=== PATIENT | male | born 1935 | race Two or more races ===

== ENCOUNTER 2022-06-09 16:04 | Inpatient (IN) | payer MEDICARE, OTHER ==
[~2022-06-09] VITALS: Ht 172.7 cm; Wt 58.7 kg
[2022-06-09 16:43] LABS: BASOPHILS % (AUTO) 0.4 % (0.0-2.0); EOSINOPHILS % (AUTO) 0.1 % (0.0-6.0); HEMATOCRIT 42 % (39-51); HEMOGLOBIN 12.6 g/dL (13.5-17.5); LYMPHOCYTES # (AUTO) 1.5 K/uL (0.8-4.8); LYMPHOCYTES % (AUTO) 12.9 % (20.0-44.0); MEAN CORPUSCULAR HGB CONC 30 g/dl (31.0-36.0); MEAN CORPUSCULAR VOLUME 91 fL (80-96); MONOCYTES # (AUTO) 1.3 K/uL (0.1-1.30); MONOCYTES % (AUTO) 11.1 % (2.0-12.0); NEUTROPHILS % (AUTO) 75.5 % (43.0-81.0); PLATELET COUNT (AUTO) 165 K/uL (150-450); RED BLOOD CELL COUNT(AUTO) 4.62 MIL/uL (4.5-6.0); WHITE BLOOD COUNT (AUTO) 11.9 K/uL (4.3-11.0)
--- NOTE | 2022-06-09 16:43 | NUR ---
iv line established on lac #20 and rfa #20, blood drawn and sent to lab
--- NOTE | 2022-06-09 16:45 | NUR ---
manager radio at bedside for xray
--- NOTE | 2022-06-09 16:51 | NUR ---
covid specimen and urine sample collected and sent to lab
[2022-06-09] MEDS ORDERED: NA P133E RC (16:57)
[2022-06-09] MEDS ORDERED: MAGN400O6 PO (16:57)
[2022-06-09] MEDS ORDERED: RANO500T3 PO (16:57)
[2022-06-09] MEDS ORDERED: APIX5TAB PO (16:57)
[2022-06-09] MEDS ORDERED: DONE10TA11 PO (16:57)
[2022-06-09] MEDS ORDERED: CLOP75TA15 PO (16:57)
[2022-06-09] MEDS ORDERED: QUET25TA PO ×2 (16:57)
[2022-06-09] MEDS ORDERED: MEMA10TA PO (16:57)
[2022-06-09] MEDS ORDERED: DOCU-141 PO (16:57)
[2022-06-09] MEDS ORDERED: MELA3TAB41 PO (16:57)
[2022-06-09] MEDS ORDERED: LANS15CA13 PO (16:57)
[2022-06-09] MEDS ORDERED: ICOS1CAP PO (16:57)
[2022-06-09 16:58] LABS: CALCIUM, SERUM 8.3 mg/dL (8.5-10.1); CARBON DIOXIDE 30 mmol/L (21-32); CHLORIDE 109 mmol/L (98-107); CREATININE 1.3 mg/dL (0.6-1.3); GLUCOSE 133 mg/dL (74-106); POTASSIUM 4.5 mmol/L (3.5-5.1); SODIUM SERUM 145 mmol/L (136-145); UREA NITROGEN, BLOOD 33 mg/dL (7-18)
[2022-06-09 17:46] LABS: BILIRUBIN,URINE MODERATE (NEGATIVE); COLOR,URINE DARK YELLOW (YELLOW); LEUKOCYTE ESTERASE ,URINE NEGATIVE (NEGATIVE); NITRITE, URINE NEGATIVE (NEGATIVE); PROTEIN,URINE TRACE mg/dl (NEGATIVE); UGLUCOSE NEGATIVE (NEGATIVE); UROBILINOGEN,URINE >=8.0 EU/dL (0.2)
[2022-06-09] MEDS ORDERED: FUROSEMIDE 20 MG/2 ML VIAL IV ONE (18:00)
[2022-06-09] MEDS ORDERED: FUROSEMIDE 20 MG/2 ML VIAL ONE (18:02)
--- NOTE | 2022-06-09 18:05 | NUR ---
sergio piano case and bench assembler for [facility]. contact # [phone]
[2022-06-09] MEDS ORDERED: NITROGLYCERIN 0.4 MG/TAB BOTTLE SL PRN (20:00)
--- NOTE | 2022-06-09 22:17 | NUR ---
Dustin victor in [facility] - 06/10/22 at 0533 by MIK BED [id number]
[2022-06-09] MEDS ORDERED: CEFTRIAXONE 1 G in IV D5W 50 ML IV SCH (23:00)
[2022-06-09] MEDS ORDERED: CEFTRIAXONE 1GM BAG (ER ONLY) 50 ML IV ONE (23:53)
[2022-06-10] MEDS ORDERED: FUROSEMIDE 20 MG/2 ML VIAL IV ONE (00:30)
[2022-06-10] MEDS ORDERED: MAGNESIUM HYDROXIDE 30 ML UDC PO PRN (00:30)
[2022-06-10] MEDS ORDERED: methylPREDNISolone SOD SUCC 40 MG/ML VIAL IV ONE (00:30)
[2022-06-10] MEDS ORDERED: FUROSEMIDE 20 MG/2 ML VIAL ONE (01:04)
[2022-06-10] MEDS ORDERED: methylPREDNISolone SOD SUCC 40 MG/ML VIAL ONE (01:04)
--- NOTE | 2022-06-10 03:00 | NUR ---
PT PROVIDED WITH WARM BLANKET FOR COMFORT.
--- NOTE | 2022-06-10 05:26 | NUR ---
TROPONIN 83. WILL INFORM MD
--- NOTE | 2022-06-10 06:40 | NUR ---
PT IS RESTING COMFORTABLY IN BED W/ EYES OPEN. RR EVEN AND NONLABORED ON NASAL CANNULA 3L OF O2. NO SIGNS OF DISTRESS. ON CONTINUED POX AND HEART MONITOR.
--- NOTE | 2022-06-10 07:21 | NUR ---
REPORT GIVEN TO PHEOBE FOR [facility]
--- NOTE | 2022-06-10 07:47 | NUR ---
BED [id number]
--- NOTE | 2022-06-10 07:56 | NUR ---
PT REPORT GIVEN TO ZAKIYA MORALES
[2022-06-10] MEDS ORDERED: PANTOPRAZOLE 40 MG TABLET.DR PO ONE (08:00)
[2022-06-10] MEDS: PANTOPRAZOLE 40 MG TABLET.DR PO SCH (08:00)
[2022-06-10 08:18] LABS: ALBUMIN 2.1 g/dL (3.4-5.0); BILIRUBIN,TOTAL 6.7 mg/dL (0.2-1.0); CALCIUM, SERUM 8.1 mg/dL (8.5-10.1); CREATININE 1.3 mg/dL (0.6-1.3); TOTAL PROTEIN, SERUM 7.9 g/dL (6.4-8.2)
[2022-06-10] MEDS ORDERED: FUROSEMIDE 20 MG/2 ML VIAL IV SCH (08:30)
--- NOTE | 2022-06-10 08:45 | NUR ---
PT TRANSFERRED TO 313-1 VIA [facility] ACLS PROTOCOL. WARM HANDOFF GIVEN TO ZAKIYA MORALES.
[2022-06-10] MEDS ORDERED: ASPIRIN EC 81 MG TABLET.DR PO SCH (09:00)
[2022-06-10] MEDS ORDERED: Medication Not On Formulary EA (Icosapent Ethyl (Vascepa) 2 CAP) PO SCH (09:00)
[2022-06-10] MEDS ORDERED: FUROSEMIDE 40 MG/4 ML VIAL IV SCH (09:00)
--- NOTE | 2022-06-10 09:00 | NUR ---
RN NOTE PATIENT WAS TRANSFERRED FROM ER VIA GURNEY WITH NO SIGNS OF DISTRESS NOTED. REPORT RECEIVED FROM ER NURSE. PATIENT V/S TAKEN STABLE AND RECORDED. PATIENT WAS ORIENTED TO ROOM SETUP AND EDUCATED ON THE USE OF CALL LIGHT. PATIENT AWAKE IN BED RESTING. A/O X1, NO PAIN NOTED AT THIS TIME. ON 4L OXYGEN VIA NC, NO DISTRESS OR SHORTNESS OF BREATH NOTED. IV ACCESS LAC #20G, RFA #20G INTACT, PATENT AND FLUSHING WELL. PATIENT ON EXTERNAL MIXER CRANE OPERATOR WITH CURRENT READING OF A-FLUTTER VENTRICULAR PACING AND HR OF 80, NO CARDIAC DISTRESS NOTED. FALL AND SAFETY MEASURES IN PLACE, BED ALARM ON, BED IN LOW AND LOCK POSITION, CALL LIGHT AND TABLE WITHIN EASY REACH, SIDE RAILS UP X2. WILL CONTINUE TO MONITOR.
[2022-06-10] MEDS: MEMANTINE HCL 5 MG TABLET PO SCH ×2 (09:57→21:46)
[2022-06-10] MEDS: CLOPIDOGREL BISULFATE 75 MG TABLET PO SCH (09:57)
[2022-06-10] MEDS: RANOLAZINE 500 MG TAB.ER.12H PO SCH ×2 (09:57→21:45)
[2022-06-10] MEDS: APIXABAN 5 MG TABLET PO SCH ×2 (09:58→16:37)
[2022-06-10 11:15] LABS: HEMATOCRIT 42 % (39-51); LYMPHOCYTES # (AUTO) 0.8 K/uL (0.8-4.8); LYMPHOCYTES % (AUTO) 10.1 % (20.0-44.0); MEAN CORPUSCULAR HGB CONC 31 g/dl (31.0-36.0); MEAN CORPUSCULAR VOLUME 91 fL (80-96); MONOCYTES # (AUTO) 0.4 K/uL (0.1-1.30); MONOCYTES % (AUTO) 4.5 % (2.0-12.0); NEUTROPHILS # (AUTO) 6.9 K/uL (1.8-8.9); NEUTROPHILS % (AUTO) 85.4 % (43.0-81.0); PLATELET COUNT (AUTO) 160 K/uL (150-450); RED BLOOD CELL COUNT(AUTO) 4.65 MIL/uL (4.5-6.0); WHITE BLOOD COUNT (AUTO) 8.1 K/uL (4.3-11.0)
[2022-06-10] MEDS: QUETIAPINE FUMARATE 25 MG TABLET PO SCH ×3 (11:45→22:13)
[2022-06-10 12:50] VITALS: BP 110/72
--- NOTE | 2022-06-10 19:06 | NUR ---
RN CLOSING NOTE PATIENT AWAKE IN BED RESTING. A/O X1, NO PAIN NOTED AT THIS TIME. ON 3L OXYGEN VIA NC, NO DISTRESS OR SHORTNESS OF BREATH NOTED. IV ACCESS LAC #20G, RFA #20G INTACT, PATENT AND FLUSHING WELL. PATIENT ON EXTERNAL UNDERWATER ROBOTICIST WITH CURRENT READING OF A-FLUTTER VENTRICULAR PACING AND HR OF 85, NO CARDIAC DISTRESS NOTED. PATIENT WAS TURNED AND REPOSITIONED PER PROTOCOL. SCHEDULE MEDICATIONS ADMINISTERED. FALL AND SAFETY MEASURES IN PLACE, BED ALARM ON, BED IN LOW AND LOCK POSITION, CALL LIGHT AND TABLE WITHIN EASY REACH, SIDE RAILS UP X2. WILL ENDORSE TO CHIEF DIVERSITY OFFICER.
--- NOTE | 2022-06-10 19:35 | NUR ---
DIGITAL SOLUTIONS ARCHITECT OPENING NOTE RECEIVED PATIENT IN BED; AWAKE, ALERT AND ORIENTED X 1. ON O2 INHALATION @ 3LPM VIA NASAL CANNULA; TOLERATING WELL. NOT IN ANY FORM OF RESPIRATORY DISTRESS. ON TELEMETRY MONITORING WITH READING OF A FLUTTER, V PACING HR-83. DENIES ANY PAIN OR DISCOMFORT AT THIS TIME. NEEDS ANTICIPATED. WITH IV ACCESS ON LEFT ANTECUBITAL 20g: PATENT, INTACT AND SALINE LOCKED. SAFETY MEASURES IMPLEMENTED: HEAD OF BED ELEVATED, CALL LIGHT AND TABLE WITHIN REACH, SIDE RAILS UP X2, BED IN LOWEST LOCKED POSITION. WILL CONTINUE PLAN OF CARE.
[2022-06-10 20:10] VITALS: BP 131/67
[2022-06-10 20:32] VITALS: BP 131/67
[2022-06-10] MEDS: DOCUSATE SODIUM 100 MG CAPSULE PO SCH (21:45)
[2022-06-10] MEDS: DONEPEZIL 5 MG TABLET PO SCH (21:45)
[2022-06-10] MEDS ORDERED: MELATONIN 3 MG TABLET PO SCH (22:00)
[2022-06-10] MEDS ORDERED: QUETIAPINE FUMARATE 25 MG TABLET ONE (22:10)
[2022-06-10] MEDS ORDERED: ENOXAPARIN SODIUM 40 MG/0.4 ML DISP.SYRIN SQ SCH (23:00)
[2022-06-11 00:26] VITALS: BP 114/63
[2022-06-11 04:14] VITALS: BP 136/66
--- NOTE | 2022-06-11 06:45 | NUR ---
313-1 APPLICATIONS DEVELOPMENT ANALYST CLOSING NOTE PATIENT IN BED; AWAKE, A/O X 1. ON O2 INHALATION @ 3LPM VIA NASAL CANNULA; TOLERATING WELL. IN NO ACUTE DISTRESS NOTED. WITH IV ACCESS ON LEFT AC 20g: PATENT, INTACT AND SALINE LOCKED. ON TELE MONITORING WITH READING OF V PACING HR-81 BPM. NO S/S OF PAIN OR DISCOMFORT NOTED AT THIS TIME. ALL NEEDS ATTENDED. ALL DUE MEDS GIVEN ORDERED. . SAFETY MEASURES MAINTAINED: HEAD OF BED ELEVATED, CALL LIGHT AND TABLE WITHIN REACH, SIDE RAILS UP X2, BED IN LOWEST LOCKED POSITION. ENDORSED TO MORNING SHIFT FOR [facility].
[2022-06-11 07:12] LABS: BASOPHILS % (AUTO) 0.1 % (0.0-2.0); HEMATOCRIT 43 % (39-51); HEMOGLOBIN 12.7 g/dL (13.5-17.5); LYMPHOCYTES # (AUTO) 1.8 K/uL (0.8-4.8); LYMPHOCYTES % (AUTO) 18.7 % (20.0-44.0); MEAN CORPUSCULAR HGB CONC 29 g/dl (31.0-36.0); MEAN CORPUSCULAR VOLUME 95 fL (80-96); MONOCYTES # (AUTO) 1.1 K/uL (0.1-1.30); MONOCYTES % (AUTO) 11.2 % (2.0-12.0); NEUTROPHILS # (AUTO) 6.8 K/uL (1.8-8.9); PLATELET COUNT (AUTO) 145 K/uL (150-450); RED BLOOD CELL COUNT(AUTO) 4.56 MIL/uL (4.5-6.0); WHITE BLOOD COUNT (AUTO) 9.7 K/uL (4.3-11.0)
--- NOTE | 2022-06-11 07:27 | NUR ---
COPY CENTER OPERATOR OPENING NOTES RECEIVED PATIENT AWAKE IN BED IN NO ACUTE SIGNS OF DISTRESS. HOB ELEVATED. A/O X 1-2. VERBALLY RESPONSIVE AND CONFUSE, DENIES ANY PAIN OR DISCOMFORT AT THIS TIME. ON O2 @ 3LPM VIA N/C; TOLERATING WELL, BREATHING EVEN AND UNLABORED. ON TELEMETRY WITH CURRENT READING OF V-PACING, HR-81, NO S/S OF CARDIAC DISTRESS OBSERVED AT THIS TIME. IV ACCESSES ON LAC #20g AND RFA #20 BOTH PATENT, INTACT AND SALINE LOCKED. SAFETY MEASURES MAINTAINED: HEAD OF BED KEPT ELEVATED, CALL LIGHT AND TRAY TABLE WITHIN REACH, SIDE RAILS UP X3, BED IN LOWEST LOCKED POSITION. WILL CONTINUE PLAN OF CARE.
[2022-06-11 07:56] LABS: ALANINE AMINOTRANSFERASE 32 U/L (12-78); ALBUMIN 1.8 g/dL (3.4-5.0); ALKALINE PHOSPHATASE 124 U/L (46-116); ASPARTATE AMINOTRANSFERASE 37 U/L (15-37); BILIRUBIN,TOTAL 4.6 mg/dL (0.2-1.0); CALCIUM, SERUM 8.2 mg/dL (8.5-10.1); CARBON DIOXIDE 23 mmol/L (21-32); CHLORIDE 107 mmol/L (98-107); CREATININE 1.7 mg/dL (0.6-1.3); GLUCOSE 120 mg/dL (74-106); MAGNESIUM 2.8 mg/dL (1.8-2.4); POTASSIUM 5.2 mmol/L (3.5-5.1); SODIUM SERUM 143 mmol/L (136-145); TOTAL PROTEIN, SERUM 7.4 g/dL (6.4-8.2); UREA NITROGEN, BLOOD 55 mg/dL (7-18)
[2022-06-11 08:00] VITALS: BP 106/72
[2022-06-11] MEDS: MEMANTINE HCL 5 MG TABLET PO SCH ×2 (08:47→21:28)
[2022-06-11] MEDS: PANTOPRAZOLE 40 MG TABLET.DR PO SCH (08:48)
[2022-06-11] MEDS: RANOLAZINE 500 MG TAB.ER.12H PO SCH ×2 (08:49→21:26)
[2022-06-11] MEDS: APIXABAN 5 MG TABLET PO SCH ×2 (08:50→16:35)
[2022-06-11] MEDS: CLOPIDOGREL BISULFATE 75 MG TABLET PO SCH (08:50)
[2022-06-11] MEDS: QUETIAPINE FUMARATE 25 MG TABLET PO SCH ×2 (08:52→16:34)
--- NOTE | 2022-06-11 11:00 | NUR ---
RN NOTES DR CARRILLO ON UNIT AND REPORTED ALL ABNORMAL BLOOD LEVELS LIKE HIGH TROPONIN, BNP, POTASSIUM, MG, BUN, CREATININE ETC. HE VERBALIZED THAT HE KNOWS IT AND READ THEM ALREADY AND WILL PUT ORDERS.
--- NOTE | 2022-06-11 14:30 | NUR ---
RN NOTES DR TORRES VISITED PT AND REPORTED TO HIM THAT PT HAS HIGH NT-PRO-BNP >[phone] AND TROPONIN-I 94. DR TORRES STATED ITS OKAY AND NO NEED FOR FURTHER CYCLE CARDIAC ENZYME TESTS.
[2022-06-11 16:00] VITALS: BP 139/68
--- NOTE | 2022-06-11 18:48 | NUR ---
TELE-RN CLOSING NOTES PATIENT AWAKE IN BED AND LYING AT MODERATE HIGH BACKREST POSITION. A/O X 1-2. VERBALLY RESPONSIVE AND CONFUSED. ON O2 @ 3LPM VIA N/C; TOLERATING WELL, BREATHING EVEN AND UNLABORED. ON TELE-MONITOR WITH CURRENT READING OF V-PACING WITH ATRIAL FLUTTER, HR-81, NO S/S OF CARDIAC DISTRESS OBSERVED DURING SHIFT. IV ACCESSES ON LAC #20g AND RFA #20 BOTH PATENT, INTACT AND SALINE LOCKED. PT TURNED AND REPOSITIONED Q 2HRS AND PRN. ALL NEEDS AND CARE PROVIDED WELL. SAFETY MEASURES MAINTAINED: HEAD OF BED KEPT ELEVATED, CALL LIGHT AND TRAY TABLE WITHIN REACH, SIDE RAILS UP X3, BED IN LOWEST LOCKED POSITION.WILL ENDORSE PLAN OF CARE TO MECHANICAL FITTER NURSE.
--- NOTE | 2022-06-11 19:25 | NUR ---
EARTHMOVING LABOURER OPENING NOTE RECEIVED PATIENT AWAKE IN BED. PT A/O X 1-2. VERBALLY RESPONSIVE AND CONFUSED. NO S/S OF PAIN OR DISCOMFORT SEEN AT THIS TIME. NO RESPIRATORY DISTRESS NOTED. ON O2 @ 3LPM VIA N/C. PT TOLERATING O2 WELL. BREATHING EVEN AND UNLABORED. ON TELEMETRY WITH CURRENT READING OF V-PACING, HR-81. IV ACCESSES TO LAC #20g AND RFA #20 BOTH PATENT, INTACT AND SALINE LOCKED. SAFETY MEASURES MAINTAINED: HEAD OF BED ELEVATED, CALL LIGHT AND BED SIDE TABLE WITHIN REACH, SIDE RAILS UP X3, BED IN LOWEST LOCKED POSITION. WILL CONTINUE PLAN OF CARE.
[2022-06-11 20:00] VITALS: BP 117/68
[2022-06-11] MEDS: DONEPEZIL 5 MG TABLET PO SCH (21:26)
[2022-06-11] MEDS: DOCUSATE SODIUM 100 MG CAPSULE PO SCH (21:26)
[2022-06-12] VITALS (7 sets, daily range): BP systolic 95–130; BP diastolic 56–75
[2022-06-12 06:07] LABS: HEMATOCRIT 41 % (39-51); HEMOGLOBIN 12.8 g/dL (13.5-17.5); LYMPHOCYTES # (AUTO) 1.9 K/uL (0.8-4.8); LYMPHOCYTES % (AUTO) 18.9 % (20.0-44.0); MEAN CORPUSCULAR HGB CONC 31 g/dl (31.0-36.0); MEAN CORPUSCULAR VOLUME 90 fL (80-96); MONOCYTES % (AUTO) 9.5 % (2.0-12.0); NEUTROPHILS # (AUTO) 7.4 K/uL (1.8-8.9); NEUTROPHILS % (AUTO) 71.6 % (43.0-81.0); PLATELET COUNT (AUTO) 139 K/uL (150-450); RED BLOOD CELL COUNT(AUTO) 4.58 MIL/uL (4.5-6.0); WHITE BLOOD COUNT (AUTO) 10.3 K/uL (4.3-11.0)
--- NOTE | 2022-06-12 07:00 | NUR ---
MANAGER CASINO CLOSING NOTE LEFT PATIENT SLEEPING IN BED. PT A/O X 1-2. VERBALLY RESPONSIVE AND CONFUSED. ON O2 @ 3LPM VIA N/C; TOLERATING WELL, BREATHING EVEN AND UNLABORED. ON TELE-MONITOR WITH CURRENT READING OF V-PACING WITH ATRIAL FLUTTER, HR-82, NO S/S OF CARDIAC DISTRESS OBSERVED DURING SHIFT. IV ACCESSES ON LAC #20g AND RFA #20 BOTH PATENT, INTACT AND SALINE LOCKED. ALL NEEDS AND CARE PROVIDED. SAFETY MEASURES MAINTAINED: HEAD OF BED KEPT ELEVATED, CALL LIGHT AND BED SIDE TABLE WITHIN REACH, SIDE RAILS UP X3, BED IN LOWEST LOCKED POSITION. WILL ENDORSE PLAN OF CARE TO MORNING SHIFT NURSE.
[2022-06-12 07:40] LABS: ALANINE AMINOTRANSFERASE 28 U/L (12-78); ALBUMIN 1.8 g/dL (3.4-5.0); ALKALINE PHOSPHATASE 126 U/L (46-116); ASPARTATE AMINOTRANSFERASE 32 U/L (15-37); BILIRUBIN,TOTAL 5.1 mg/dL (0.2-1.0); CALCIUM, SERUM 7.9 mg/dL (8.5-10.1); CARBON DIOXIDE 28 mmol/L (21-32); CHLORIDE 106 mmol/L (98-107); CREATININE 1.8 mg/dL (0.6-1.3); GLUCOSE 103 mg/dL (74-106); MAGNESIUM 2.7 mg/dL (1.8-2.4); POTASSIUM 4.6 mmol/L (3.5-5.1); SODIUM SERUM 145 mmol/L (136-145); UREA NITROGEN, BLOOD 67 mg/dL (7-18)
[2022-06-12 07:49] LABS: PHOSPHORUS 4.3 mg/dL (2.5-4.9)
--- NOTE | 2022-06-12 08:17 | NUR ---
ANTIQUE JEWELRY REPAIRER OPENING NOTE Patient in bed, awake. A/O x 1-2, Malay speaking. On O2 at #LPM via NC, breathing evenly and unlabored. No SOB or s/s of distress noted. IV access on LAC #20, and RFA #20 SL, both intact and patent. On tele monitoring V-pacing HR 81. Safety precautions in place: bed in low, locked position; siderails up x2; call light within reach. Will continue to monitor.
--- NOTE | 2022-06-12 09:02 | NUR ---
WOUND CARE CONSULT: PT PRESENTS WITH AREAS OF SKIN DISCOLORATION, SACRAL DEEP TISSUE INJURY AND LEFT HIP DRY ABRASION, PRESENT ON ADMISSION. RECOMMENDATIONS MADE FOR SKIN PROTECTION. DISCUSSED WITH NURSING STAFF. MD IN AGREEMENT WITH PLAN OF CARE.
[2022-06-12] MEDS: RANOLAZINE 500 MG TAB.ER.12H PO SCH ×2 (09:16→21:46)
[2022-06-12] MEDS: QUETIAPINE FUMARATE 25 MG TABLET PO SCH ×3 (09:18→21:46)
[2022-06-12] MEDS: PANTOPRAZOLE 40 MG TABLET.DR PO SCH (09:18)
[2022-06-12] MEDS: MEMANTINE HCL 5 MG TABLET PO SCH ×2 (09:18→21:46)
[2022-06-12] MEDS: CLOPIDOGREL BISULFATE 75 MG TABLET PO SCH (09:19)
[2022-06-12] MEDS: APIXABAN 5 MG TABLET PO SCH ×2 (09:20→17:10)
[2022-06-12] MEDS ORDERED: Z GUARD REMEDY 4 OZ OINT TP PRN (09:30)
[2022-06-12] MEDS: Z GUARD REMEDY 4 OZ OINT TP SCH (10:44)
[2022-06-12] MEDS: ENSURE ENLIVE 237 ML LIQUID (VANILLA) PO SCH (17:11)
[2022-06-12 18:44] LABS: BILIRUBIN,DIRECT 3.7 mg/dL (0.0-0.2); BILIRUBIN,TOTAL 4.7 mg/dL (0.2-1.0)
--- NOTE | 2022-06-12 19:00 | NUR ---
RETAIL BANKER CLOSING NOTE Patient in bed, resting. Alert, Syrian speaking. On O2 at 3LPM via NC, breathing evenly and unlabored. No SOB or s/s of distress noted. IV access on LAC #20, and RFA #20 SL, both intact and patent. On tele monitoring V-pacing with BBB and occasional PVC's, HR 80. Patient kept clean and dry. Due meds given. Turned and repositioned, as tolerated. Safety precautions in place: bed in low, locked position; siderails up x2; call light within reach. Will endorse to assistant to the president nurse for [facility].
--- NOTE | 2022-06-12 19:25 | NUR ---
ROOFING TECHNICIAN OPEN NOTE: RESPONSIVE TO VERBAL STIMULI, OPENS EYES. ON 02 3LPM NC. ON TELE MONITOR WITH A READING OF V PACING 80'S. IV'S ON LEFT AC AND RT FOREARM PATENT. HOB ELEVATED WITH SEMI-COTTON'S POSITION. BILATERAL HALF SIDE RAIL UPX2. BED IS LOCKED, IN LOW POSITION WITH BED EXIT ALARM ON. CALL LIGHT IN REACH.
[2022-06-12] MEDS: DONEPEZIL 5 MG TABLET PO SCH (21:47)
[2022-06-12] MEDS: DOCUSATE SODIUM 100 MG CAPSULE PO SCH (21:47)
[2022-06-13] VITALS: BP 100/66
--- NOTE | 2022-06-13 02:42 | NUR ---
LEFT IV AC NOTED DISLODGED,TIP INTACT WITH MINIMAL BLEEDING. PRESSURE APPLIED.
[2022-06-13 04:00] VITALS: BP 102/51
--- NOTE | 2022-06-13 06:31 | NUR ---
RN TELEHEALTH CLOSING NOTE: RESPONSIVE TO VERBAL STIMULI, OPENS EYES, MAKES UNCOMPREHENDING SOUNDS. ON 02 3LPM NC. ON TELE MONITOR WITH A READING OF V PACING 80'S. IV'S ON RT FOREARM PATENT. KEPT CLEAN AND DRY. TURNED AND REPOSITIONED. HOB ELEVATED SEMI-COTTON'S POSITION. BILATERAL HALF SIDE RAIL UPX2. BED IS LOCKED, IN LOW POSITION WITH BED EXIT ALARM ON. CALL LIGHT IN REACH.
[2022-06-13 06:33] LABS: EOSINOPHILS % (AUTO) 0.4 % (0.0-6.0); HEMATOCRIT 40 % (39-51); HEMOGLOBIN 12.5 g/dL (13.5-17.5); LYMPHOCYTES # (AUTO) 1.1 K/uL (0.8-4.8); MEAN CORPUSCULAR HGB CONC 31 g/dl (31.0-36.0); MEAN CORPUSCULAR VOLUME 91 fL (80-96); MONOCYTES # (AUTO) 0.6 K/uL (0.1-1.30); MONOCYTES % (AUTO) 7.4 % (2.0-12.0); NEUTROPHILS # (AUTO) 6.8 K/uL (1.8-8.9); NEUTROPHILS % (AUTO) 79.2 % (43.0-81.0); PLATELET COUNT (AUTO) 137 K/uL (150-450); RED BLOOD CELL COUNT(AUTO) 4.44 MIL/uL (4.5-6.0); WHITE BLOOD COUNT (AUTO) 8.5 K/uL (4.3-11.0)
[2022-06-13 07:18] LABS: ALANINE AMINOTRANSFERASE 27 U/L (12-78); ALBUMIN 1.7 g/dL (3.4-5.0); ALKALINE PHOSPHATASE 121 U/L (46-116); ASPARTATE AMINOTRANSFERASE 37 U/L (15-37); BILIRUBIN,TOTAL 4.4 mg/dL (0.2-1.0); CALCIUM, SERUM 7.9 mg/dL (8.5-10.1); CARBON DIOXIDE 29 mmol/L (21-32); CHLORIDE 108 mmol/L (98-107); CREATININE 1.6 mg/dL (0.6-1.3); GLUCOSE 152 mg/dL (74-106); MAGNESIUM 2.8 mg/dL (1.8-2.4); POTASSIUM 4.3 mmol/L (3.5-5.1); SODIUM SERUM 144 mmol/L (136-145); TOTAL PROTEIN, SERUM 6.4 g/dL (6.4-8.2); UREA NITROGEN, BLOOD 63 mg/dL (7-18)
[2022-06-13 07:37] LABS: PHOSPHORUS 2.5 mg/dL (2.5-4.9)
--- NOTE | 2022-06-13 07:49 | NUR ---
ANIMAL EVISCERATOR OPENING NOTE Patient in bed, awake and responsive, A/O x1-2, Slovak speaking. On O2 at 3LPM via NC, breathing evenly and unlabored. No SOB or s/s of distress noted. IV access on RFA #20, SL, intact and patent. On tele monitoring V-pacing HR 80. Safety precautions in place: bed in low, locked position; siderails up x2; call light within reach. Will continue to monitor.
[2022-06-13] MEDS: APIXABAN 5 MG TABLET PO SCH (08:32)
[2022-06-13] MEDS: RANOLAZINE 500 MG TAB.ER.12H PO SCH (08:33)
[2022-06-13] MEDS: MEMANTINE HCL 5 MG TABLET PO SCH (08:33)
[2022-06-13] MEDS: CLOPIDOGREL BISULFATE 75 MG TABLET PO SCH (08:34)
[2022-06-13] MEDS: QUETIAPINE FUMARATE 25 MG TABLET PO SCH (08:34)
[2022-06-13] MEDS: ENSURE ENLIVE 237 ML LIQUID (VANILLA) PO SCH (08:36)
[2022-06-13] MEDS: PANTOPRAZOLE 40 MG TABLET.DR PO SCH (08:36)
[2022-06-13] MEDS: Z GUARD REMEDY 4 OZ OINT TP SCH (08:36)
--- NOTE | 2022-06-13 16:34 | NUR ---
DISCHARGE NOTES Patient discharged to [facility] in stable condition. Patient is A/O x 0. On O2 at 3 LPM, breathing evenly and unlabored, no signs of distress. Called and report given to ZAKIYA Koch. Patient has no belongings. IV access removed; pressure dressing applied, no signs of bleeding noted. Exit folder handed to EMT. Patient left in stable condition via ambulance service with 2 EMT assistance.
== END 2022-06-13 16:30 | DRG 280 ==
LOC: ER 16:16 → MED 22:48 → TRANSITION 23:20 → MED 06-10 07:57 → TELE 06-10 08:25
PROVIDERS: ADMIT Registered Nurse
DX: I11.0 Hypertensive heart disease with heart failure (principal); I21.A1 Myocardial infarction type 2; I50.33 Acute on chronic diastolic (congestive) heart failure; N17.0 Acute kidney failure with tubular necrosis; J90 Pleural effusion, not elsewhere classified; I48.92 Unspecified atrial flutter; J98.11 Atelectasis; E88.09 Other disorders of plasma-protein metabolism, not elsewhere classified; F01.50 Vascular dementia, unspecified severity, without behavioral disturbance, psychotic disturbance, mood disturbance, and anxiety; Z95.0 Presence of cardiac pacemaker; Z86.16 Personal history of COVID-19; F20.9 Schizophrenia, unspecified; Z79.02 Long term (current) use of antithrombotics/antiplatelets; Z79.01 Long term (current) use of anticoagulants; Z79.899 Other long term (current) drug therapy; K80.20 Calculus of gallbladder without cholecystitis without obstruction; N28.1 Cyst of kidney, acquired; E78.5 Hyperlipidemia, unspecified; I48.91 Unspecified atrial fibrillation; E80.6 Other disorders of bilirubin metabolism
CPT/HCPCS: 36415; 71045-TC; 76705-TC; 76770-TC; 80048-TC; 80053-TC; 82247-TC; 82248-TC; 83735-TC; 83880; 84100-TC; 84484-TC; 85025-TC; 87081-TC; 92526; 92611-TC; 93307-TC; 94799-TC; 97112-TC; 97530-TC; C9803; G0378; J0696; J1940; J2920; J7060